=== PATIENT | male | born 1995 | race African-American/Black ===

== ENCOUNTER 2017-09-14 00:10 | Emergency (ER) | payer OTHER, SELFPAY ==
[2017-09-14] MEDS ORDERED: Ibuprofen 800 MG TAB ONE (01:11)
[2017-09-14 01:39] LABS: #Basophils 0.1 thou/uL (0.0-0.2); #Eosinphils 0.1 thou/uL (0.0-0.7); #Lymphocytes 0.6 thou/uL (1.20-3.40); #Monocytes 0.8 thou/uL (0.11-0.59); %Basophils 1.2 % (0.0-1.0); %Eosinophils 1.1 % (0.0-10.0); %Lymphocytes 6.7 % (21.0-51.0); %Monocytes 9.5 % (0.0-10.0); %Neutrophils 81.5 % (42.0-75.0); Hemoglobin 15.4 g/dL (14.0-18.0); Mean Corpuscular HGB CONC 33.9 g/dL (32.0-36.0); Mean Corpuscular Hemoglobin 29.8 pg (27.0-31.0); Mean Corpuscular Volume 87.9 fl (80.0-94.0); Mean Platelet Volume 9.2 fL (7.4-10.4); Platelet Count 212 thou/uL (130-400); RBC Distribution Width 10.7 % (11.5-14.5); Red Blood Cell (RBC) Count 5.17 mill/uL (4.70-6.10); White Blood Cell (WBC) Count 8.6 thou/uL (4.8-10.8)
[2017-09-14 01:41] LABS: Bilirubin Negative (Negative); Blood, Urine Negative (Negative); Clarity Clear (Clear); Glucose, Urine (Dipstick) Negative (Negative); Leukocyte Negative (Negative); Nitrite Negative (Negative); Protein, Urine (Dipstick) Negative (Neg-Trace); pH, Urine 8.5 (5.0-9.0)
[2017-09-14 01:45] LABS: Cocaine Metabolite Screen Not Detected (NotDetected); Methamphetamine Detected (NotDetected); Phencyclidine (PCP) Not Detected (NotDetected); THC/Cannabinoid Screen Detected (NotDetected)
[2017-09-14 01:46] LABS: Amphetamine Detected (NotDetected); Barbiturates Screen Not Detected (NotDetected); Benzodiazepine Screen Not Detected (NotDetected); Medtox Control Line Valid? VALID (VALID); Methadone Not Detected (NotDetected); Opiate Screen Not Detected (NotDetected); Oxycodone Screen Not Detected (NotDetected); Tricyclic Screen Not Detected (NotDetected)
[2017-09-14 01:49] LABS: ALT (SGPT) 17 U/L (8-55); AST (SGOT) 28 U/L (5-34); Albumin 4.7 g/dL (3.5-5.0); Alkaline Phosphatase 72 U/L (40-150); Anion Gap 15 mmol/L (10-20); BUN (Urea Nitrogen) 11 mg/dL (8.9-20.6); Bilirubin, Total 0.8 mg/dL (0.2-1.2); CK (CPK) 492 U/L (30-200); Calc. Creatinine Clearance 0 mL/min (70-130); Calcium 10.3 mg/dL (7.8-10.44); Carbon Dioxide 27 mmol/L (22-29); Chloride 98 mmol/L (98-107); Estimated GFR-MDRD 71; Globulin 3.2 g/dL (2.4-3.5); Glucose 111 mg/dL (70-105); Protein, Total 7.9 g/dL (6.0-8.3); Sodium 136 mmol/L (136-145)
[2017-09-14 01:50] LABS: CKMB 1.2 ng/mL (0-6.6); Troponin I Less than 0.010 ng/mL (< 0.028)
--- NOTE | 2017-09-14 07:25 | CT ---
PRELIMINARY REPORT/[facility]/EMERGENCY AFTER HOURS PROCEDURE: EXAM: CT Head Without Intravenous Contrast CLINICAL HISTORY: 22 years old, male; Signs and symptoms; Syncope and collapse; Patient HX: Reported that patient "fell out" and started shaking. Unknown length of time. Associated w/fever & BRIZUELA; Additional info: Mother s tatkarime patient's daughter saw the patient on the ground shaking all over. She can not tell for how soren g it lasted. Patient does not remember event, he does not remember falling down. This happen about 1 hour prior to arrival. Patient does not have any history of seizures. TECHNIQUE: Axial computed tomography images of the head/brain without intravenous contrast. All CT scans at this facility use one or more dose reduction techniques, viz.: automated exposure control; ma/kV adjustme nt per patient size (including targeted exams where dose is matched to indication; i.e. head); or ite rative reconstruction technique. COMPARISON: No relevant prior studies available. FINDINGS: Brain: Mild volume loss No hemorrhage. No significant white matter disease. No edema. Ventricles: Unremarkable. No ventriculomegaly. Bones/joints: Unremarkable. No acute fracture. Soft tissues: Unremarkable. Sinuses: Mild mucosal thickening in the ethmoid air cells No acute sinusitis. Mastoid air cells: Unremarkable as visualized. No mastoid effusion. IMPRESSION: No intracranial hemorrhage.Please see discussion above. Thank you for allowing us to participate in the care of your patient. Dictated and Authenticated by: Alejandro Jarquin MD 09/14/2017 1:49 AM Central Time ([place] & [place]) FINAL REPORT CT BRAIN WITHOUT CONTRAST: I agree with the preliminary report given by Dr. Alejandro Jarquin of [facility]. No CT evidence of acute intra cranial process is seen. No significant interval changes are seen since exam of 09/05/2014. POS: [facility]
== END 2017-09-14 02:40 | disposition home or self-care (01) ==
LOC: NAV ERS 00:10
DX: E86.0 Dehydration (principal); F12.10 Cannabis abuse, uncomplicated; F15.10 Other stimulant abuse, uncomplicated; I10 Essential (primary) hypertension
CPT/HCPCS: 70450; 80053; 80306; 81003; 82553; 84484; 85025; 93005; 96360

== ENCOUNTER 2022-03-15 19:40 | Emergency (ER) | payer SELFPAY | END 2022-03-15 20:29 | disposition home or self-care (01) | LOC: NAV ERS 19:40 | DX: H61.21 Impacted cerumen, right ear (principal); F17.290 Nicotine dependence, other tobacco product, uncomplicated | CPT/HCPCS: 69209 ==

== ENCOUNTER 2022-09-15 10:02 | Emergency (ER) | payer SELFPAY | END 2022-09-15 11:15 | disposition home or self-care (01) | LOC: NAV ERS 10:02 | DX: S39.012A Strain of muscle, fascia and tendon of lower back, initial encounter (principal); F17.290 Nicotine dependence, other tobacco product, uncomplicated; X58.XXXA Exposure to other specified factors, initial encounter | CPT/HCPCS: 99283 ==

== ENCOUNTER 2024-06-13 08:38 | Emergency (ER) | payer OTHER | END 2024-06-13 09:24 | disposition home or self-care (01) | LOC: NAV ERS 08:38 | DX: K08.89 Other specified disorders of teeth and supporting structures (principal); F17.290 Nicotine dependence, other tobacco product, uncomplicated | CPT/HCPCS: 99282 ==

== ENCOUNTER 2024-07-21 15:16 | Emergency (ER) | payer OTHER, SELFPAY ==
[2024-07-21] MEDS ORDERED: Midazolam HCl 2 mg/2 ml Vial ONE (15:24)
[2024-07-21] MEDS ORDERED: Sodium Chloride 0.9% 1,000 ML ONE ×2 (15:31→17:49)
[2024-07-21] MEDS ORDERED: Haloperidol Lactate 5 MG/ML VIAL ONE (15:35)
[2024-07-21 16:08] LABS: INR-International Normal Ratio 1.1; Prothrombin Time 14.4 sec (12.0-14.7)
[2024-07-21 16:09] LABS: PTT 24.4 sec (22.9-36.1)
[2024-07-21 16:11] LABS: Hematocrit 46.7 % (42.0-52.0); Hemoglobin 15.2 g/dL (14.0-18.0); Mean Corpuscular HGB CONC 32.6 g/dL (32.0-36.0); Mean Corpuscular Hemoglobin 30.1 pg (27.0-31.0); Mean Corpuscular Volume 92.3 fl (78.0-98.0); Mean Platelet Volume 8.6 fL (7.4-10.4); Platelet Count 300 10x3/uL (130-400); RBC Distribution Width 11.3 % (11.5-14.5); Red Blood Cell (RBC) Count 5.06 mill/uL (4.70-6.10); White Blood Cell (WBC) Count 13.6 10x3/uL (4.8-10.8)
[2024-07-21 16:14] LABS: Base Excess-Venous -15.6 mmol/L (-2.0 to 3.0); Bicarbonate (HCO3v) 13.9 mmol/L (22.0-28.0); CO2 Tension (PvCO2) 45.1 mmHg (42.0-51.0); Calcium, Ionized 1.25 mmol/L (1.15-1.33); Chloride 106 mmol/L (98-107); Hemoglobin - Calc 15.9 g/dL (14.0-18.0); Potassium 3.6 mmol/L (3.5-5.1); Sodium 140 mmol/L (138-145); T. Carbon Dioxide 15.3 mmol/L (22.0-28.0); vO2 Saturation-calc 87.8 % (60.0-85.0)
[2024-07-21 16:21] LABS: ALT (SGPT) 34 U/L (8-55); AST (SGOT) 23 U/L (5-34); Albumin 4.3 g/dL (3.5-5.0); Alcohol Less than 10.0 mg/dL (Less than 10); Alkaline Phosphatase 64 U/L (40-110); Anion Gap 30 mmol/L (10-20); BUN (Urea Nitrogen) 10 mg/dL (8.9-20.6); Bilirubin, Total 0.4 mg/dL (0.2-1.2); CK (CPK) 361 U/L (30-200); Calc. Creatinine Clearance 0 mL/min (70-130); Calcium 10.1 mg/dL (7.8-10.44); Carbon Dioxide 13 mmol/L (22-29); Chloride 103 mmol/L (98-107); Estimated GFR 63; Globulin 3.9 g/dL (2.4-3.5); Glucose 138 mg/dL (70-105); Lipase 15 U/L (8-78); Potassium 3.6 mmol/L (3.5-5.1); Protein, Total 8.2 g/dL (6.0-8.3); Sodium 142 mmol/L (136-145)
[2024-07-21 16:26] LABS: Troponin I Less than 0.010 ng/mL (< 0.028)
[2024-07-21] MEDS ORDERED: levETIRAcetam 500 MG (5 mL) VIAL ONE (16:28)
[2024-07-21 16:36] LABS: Thyroid Stimulating Hormone 1.928 uIU/mL (0.35-4.94)
[2024-07-21 16:42] LABS: Bilirubin Negative (Negative); Blood, Urine Negative (Negative); Clarity Clear (Clear); Glucose, Urine (Dipstick) Negative (Negative); Ketone, Urine Negative (Negative); Leukocyte Negative (Negative); Nitrite Negative (Negative); Protein, Urine (Dipstick) Trace mg/dL (Neg-Trace); Specific Gravity, Urine 1.015 (1.005-1.030); Urobilinogen 0.2 mg/dL (Less than 2)
[2024-07-21 16:44] LABS: Critical Call Chem-Lactate NUR.RYE@1633
[2024-07-21] MEDS ORDERED: levETIRAcetam 500 MG (5 mL) VIAL SLOW IVP SCH (16:45)
[2024-07-21 16:48] LABS: Amphetamine Detected (NotDetected); Barbiturates Screen Not Detected (NotDetected); Benzodiazepine Screen Detected (NotDetected); Cocaine Metabolite Screen Not Detected (NotDetected); Methadone Not Detected (NotDetected); Methamphetamine Detected (NotDetected); Opiate Screen Not Detected (NotDetected); Oxycodone Screen Not Detected (NotDetected); Phencyclidine (PCP) Not Detected (NotDetected); THC/Cannabinoid Screen Detected (NotDetected); Tricyclic Screen Not Detected (NotDetected)
[2024-07-21 16:48] LABS: MDiff Complete? YES
[2024-07-21 16:59] LABS: Eosinophils 3 % (0-10); Lymphocytes 57 % (21-51); Monocytes 1 % (0-10); Neutrophil 39 % (42-75)
[2024-07-21 17:01] LABS: Large Platelets SLIGHT (None Seen); Platelet Adequacy Comment Appears Adequate; RBC Morph Comment Within Normal Limits; Toxic Granulation SLIGHT
[2024-07-21 17:06] LABS: Bacteria/HPF 2+ HPF (None Seen); CAUTI Indications for Culture Alt mental st,lethar; Mucous/LPF 1+ LPF (<2+); RBC/HPF 0-3 HPF (0-3); Renal Epithelial 0-3 HPF (None Seen); Squamous Epithelial None Seen HPF (0-3); WBC/HPF 0-3 HPF (0-3)
[2024-07-21 17:08] LABS: Sperm/HPF Rare HPF (None Seen)
[2024-07-21 17:10] LABS: Urine Culture Reflex No No
[2024-07-21] MEDS ORDERED: cefTRIAXone (ROCEPHIN) 2 GM VIAL ONE (17:29)
[2024-07-21] MEDS ORDERED: Sodium Chloride 0.9% 100 ML ONE (17:29)
[2024-07-21] MEDS ORDERED: cefTRIAXone (ROCEPHIN) 1 GM VIAL ONE (17:31)
[2024-07-21 19:42] LABS: Anion Gap 13 mmol/L (10-20); BUN (Urea Nitrogen) 9 mg/dL (8.9-20.6); Calc. Creatinine Clearance 0 mL/min (70-130); Calcium 9.6 mg/dL (7.8-10.44); Carbon Dioxide 26 mmol/L (22-29); Chloride 106 mmol/L (98-107); Estimated GFR 85; Glucose 84 mg/dL (70-105); Potassium 4.2 mmol/L (3.5-5.1); Sodium 141 mmol/L (136-145)
[2024-07-21 23:19] LABS: Free T4 (Free Thyroxine) 0.82 ng/dL (0.70-1.48)
== END 2024-07-21 20:15 | disposition home or self-care (01) ==
LOC: NAV ERS 15:16
DX: R56.9 Unspecified convulsions (principal); T50.905A Adverse effect of unspecified drugs, medicaments and biological substances, initial encounter; F17.290 Nicotine dependence, other tobacco product, uncomplicated
CPT/HCPCS: 36416; 70450; 80053; 80306; 80307; 81001; 82330; 82435; 82550; 82803; 83605; 83690; 84132; 84295; 84439; 84443; 84484; 85014; 85025; 85610; 85730; 93005; 96361; 96365; 96372; 96375; 36415-59; J0696; J1630; J1953; J2250; J7030